=== PATIENT | male | born 1970 | race Caucasian/White ===

== ENCOUNTER 2024-07-10 10:05 | Outpatient (CLI) | payer MEDICARE, MEDICAID, SELFPAY ==
--- NOTE | 2024-07-10 10:00 | RT.EKG_ITS ---
APPROVED REPORT Exam: Resting ECG Reason for Exam: high risk medication use Patient Location: O HR:87 bpm ECG Measurements Heart Rate 87 AXIS [place] 164 P 55 QRSd 91 QRS 47 QT 381 T 43 QTc 459 Conclusion Sinus rhythm...normal P axis, V-rate 50- 99 Normal Electrocardiogram
== END 2024-07-10 10:06 | disposition home or self-care (01) ==
PROVIDERS: Visit Provider Family Medicine
DX: Z79.899 Other long term (current) drug therapy (principal)
CPT/HCPCS: 93005; 93010

== ENCOUNTER 2024-07-13 01:42 | Outpatient (CLI) | payer MEDICARE, SELFPAY ==
[2024-07-13 11:18] LABS: ALT 15 U/L (16-63); AST 25 U/L (15-37); Albumin 3.7 g/dL (3.4-5.0); Alkaline Phosphatase 179 U/L (46-116); Anion Gap 7.7 mmol/L (3-11); BUN 11 mg/dL (7-18); Bilirubin, Total 0.4 mg/dL (0.2-1.0); CO2 28.3 mmol/L (21.0-32.0); CREATININE 0.9 mg/dL (0.70-1.30); Calcium 9.4 mg/dL (8.5-10.1); Chloride 100 mmol/L (98-107); Estimated GFR 102.12 (mL/min/1.73m2); Glucose 102 mg/dL (74-106); Magnesium 1.7 mg/dL (1.8-2.4); Potassium 4.2 mmol/L (3.5-5.1); Sodium 136 mmol/L (136-145); TSH 1.25 uIU/mL (0.36-3.74); Total Protein 8.5 g/dL (6.4-8.2)
== END 2024-07-13 01:43 | disposition home or self-care (01) ==
PROVIDERS: PCP Family Medicine; Visit Provider Family Medicine
DX: I10 Essential (primary) hypertension (principal); F11.20 Opioid dependence, uncomplicated; K92.2 Gastrointestinal hemorrhage, unspecified
CPT/HCPCS: 36415; 80053; 83735; 84443